=== PATIENT | male | born 1975 | race Caucasian/White ===

== ENCOUNTER 2018-09-09 23:40 | Observation (INO) | payer OTHER ==
[~2018-09-09] VITALS: Ht 177.8 cm; Wt 86.2 kg
[2018-09-10] MEDS ORDERED: AMIT25 PO (00:20)
[2018-09-10] MEDS ORDERED: CLON.2 (00:21)
[2018-09-10] MEDS ORDERED: SERT100 PO (00:21)
[2018-09-10] MEDS ORDERED: Naltrexone HCl50 MG PO (00:21)
[2018-09-10] MEDS ORDERED: LEVE500 PO ×2 (00:22)
[2018-09-10 01:10] LABS: U Amphetamine Screen Not Detected; U Barbituate Screen Not Detected; U Benzodiazapine Screen DETECTED; U Buprenorphine Screen Not Detected; U Cannabinoids Screen DETECTED; U Cocaine Screen Not Detected; U Methadone Screen Not Detected; U Methamphetamine Screen Not Detected; U Opiates Screen Not Detected; U Oxycodone Screen Not Detected; U Phencyclidine Screen Not Detected; U Propoxyphene Screen Not Detected
[2018-09-10 01:30] LABS: BASOPHILS ABSOLUTE AUTO 0.05 K/mm3 (0.00-0.23); BASOPHILS PERCENT AUTO 1 % (0-2); EOSINOPHILS ABSOLUTE AUTO 0.63 K/mm3 (0.00-0.68); EOSINOPHILS PERCENT AUTO 7 % (0-6); Hematocrit 46.6 % (37.0-53.0); Hemoglobin 15.4 g/dL (13.5-17.5); IMMATURE GRAN ABSOLUTE AUTO 0.02 K/mm3 (0.00-0.10); IMMATURE GRAN PERCENT AUTO 0 % (0-1); LYMPHOCYTES ABSOLUTE AUTO 2.56 K/mm3 (0.84-5.20); LYMPHOCYTES PERCENT AUTO 27 % (21-46); MONOCYTES ABSOLUTE AUTO 1.05 K/mm3 (0.16-1.47); MONOCYTES PERCENT AUTO 11 % (4-13); Mean Corpuscular HGB 31.9 pg (26.0-34.0); Mean Corpuscular Volume 97 fL (80-100); Mean Platelet Volume 10.4 fL (9.1-12.4); NEUTROPHILS ABSOLUTE AUTO 5.27 K/mm3 (1.96-9.15); NEUTROPHILS PERCENT AUTO 55 % (41-73); Platelet Count 263 K/mm3 (150-400); RDW Coefficient Variation 13.7 % (11.7-14.2); RDW Standard Deviation 49.7 fL (35.1-46.3); Red Blood Cell Count 4.83 M/mm3 (4.30-5.90); White Blood Cell Count 9.58 K/mm3 (4.00-11.30)
[2018-09-10 01:47] LABS: Alanine Aminotransfer (ALT/SGP 47 U/L (12-78); Alk Phos 70 U/L (50-136); Anion Gap 9 mmol/L (6-16); Aspartate Aminotrans (AST/SGOT 53 U/L (12-37); Bilirubin, Total 0.4 mg/dL (0.1-1.0); Blood Urea Nitrogen 8 mg/dL (8-24); Bun/Creatinine Ratio 9.1 (12.0-20.0); CO2, Blood 27 mmol/L (21-32); Calcium, Blood 8.7 mg/dL (8.5-10.1); Chloride, Blood 104 mmol/L (98-108); Creatinine, Blood 0.88 mg/dL (0.60-1.20); Globulin, Blood 3.9 g/dL (2.2-4.0); Glomerular Filtration Rate >60 (60-); Glucose, Blood 125 mg/dL (70-99); Potassium, Blood 4.2 mmol/L (3.5-5.5); Salicylate 3.4 mg/dL (2.8-20.0); Sodium, Blood 140 mmol/L (136-145); Total Protein, Blood 7.9 g/dL (6.4-8.2)
[2018-09-10 01:51] LABS: Acetaminophen, Random <2.0 ug/mL (10.0-30.0)
== END 2018-09-10 14:27 | disposition home or self-care (01) ==
LOC: ER 23:40 → EOR 23:41
PROVIDERS: Physician Assistant; ADMIT Emergency Medicine
DX: F32.9 Major depressive disorder, single episode, unspecified (principal); I10 Essential (primary) hypertension; G40.909 Epilepsy, unspecified, not intractable, without status epilepticus; Z79.899 Other long term (current) drug therapy
CPT/HCPCS: 80053; 85025; 99285; G0378; G0480; Q3014

== ENCOUNTER 2018-10-16 19:07 | Emergency (ER) | payer OTHER ==
[~2018-10-16] VITALS: Ht 177.8 cm; Wt 83.9 kg
[~2018-10-16 19:07] MED LIST: AMIT25 PO; CLON.2; LEVE500 PO; Naltrexone HCl50 MG PO; SERT100 PO
[2018-10-16] MEDS ORDERED: CEPH500 PO (19:36)
[2018-10-16] MEDS ORDERED: KETO10 PO (19:36)
[2018-10-16] MEDS ORDERED: Bactrim Ds Tab1 EACH PO (19:36)
== END 2018-10-16 19:45 | disposition home or self-care (01) ==
LOC: ER 19:07
DX: L03.116 Cellulitis of left lower limb (principal); L03.115 Cellulitis of right lower limb; G40.909 Epilepsy, unspecified, not intractable, without status epilepticus; I10 Essential (primary) hypertension; F32.9 Major depressive disorder, single episode, unspecified; Z79.899 Other long term (current) drug therapy
CPT/HCPCS: 99283

== ENCOUNTER 2018-12-16 15:05 | Emergency (ER) | payer OTHER ==
[~2018-12-16 15:05] MED LIST changes: +Bactrim Ds Tab1 EACH PO; +CEPH500 PO; +KETO10 PO
== END 2018-12-16 15:50 | disposition left against medical advice (07) ==
LOC: ER 15:05
DX: Z53.21 Procedure and treatment not carried out due to patient leaving prior to being seen by health care provider (principal); M54.9 Dorsalgia, unspecified

== ENCOUNTER 2018-12-19 07:55 | Emergency (ER) | payer OTHER ==
[~2018-12-19] VITALS: Ht 177.8 cm; Wt 81.7 kg
[2018-12-19 09:17] LABS: BASOPHILS ABSOLUTE AUTO 0.06 K/mm3 (0.00-0.23); BASOPHILS PERCENT AUTO 1 % (0-2); EOSINOPHILS ABSOLUTE AUTO 0.15 K/mm3 (0.00-0.68); EOSINOPHILS PERCENT AUTO 1 % (0-6); Hematocrit 47.9 % (37.0-53.0); Hemoglobin 16.4 g/dL (13.5-17.5); IMMATURE GRAN ABSOLUTE AUTO 0.05 K/mm3 (0.00-0.10); IMMATURE GRAN PERCENT AUTO 0 % (0-1); LYMPHOCYTES ABSOLUTE AUTO 2.39 K/mm3 (0.84-5.20); LYMPHOCYTES PERCENT AUTO 19 % (21-46); MONOCYTES ABSOLUTE AUTO 0.82 K/mm3 (0.16-1.47); MONOCYTES PERCENT AUTO 6 % (4-13); Mean Corpuscular HGB 31.2 pg (26.0-34.0); Mean Corpuscular HGB Conc 34.2 g/dL (31.5-36.5); Mean Corpuscular Volume 91 fL (80-100); Mean Platelet Volume 10.7 fL (9.1-12.4); NEUTROPHILS ABSOLUTE AUTO 9.41 K/mm3 (1.96-9.15); NEUTROPHILS PERCENT AUTO 73 % (41-73); Platelet Count 268 K/mm3 (150-400); RDW Coefficient Variation 12.6 % (11.7-14.2); Red Blood Cell Count 5.26 M/mm3 (4.30-5.90); White Blood Cell Count 12.88 K/mm3 (4.00-11.30)
[2018-12-19 09:25] LABS: Alanine Aminotransfer (ALT/SGP 27 U/L (12-78); Albumin, Blood 4.2 g/dL (3.4-5.0); Alk Phos 67 U/L (50-136); Anion Gap 9 mmol/L (6-16); Aspartate Aminotrans (AST/SGOT 30 U/L (12-37); Bilirubin, Total 0.3 mg/dL (0.1-1.0); Blood Urea Nitrogen 7 mg/dL (8-24); Bun/Creatinine Ratio 9.9 (12.0-20.0); CO2, Blood 24 mmol/L (21-32); Calcium, Blood 9.3 mg/dL (8.5-10.1); Chloride, Blood 106 mmol/L (98-108); Creatinine, Blood 0.71 mg/dL (0.60-1.20); Globulin, Blood 4.1 g/dL (2.2-4.0); Glomerular Filtration Rate >60 (60-); Glucose, Blood 109 mg/dL (70-99); Potassium, Blood 3.8 mmol/L (3.5-5.5); Sodium, Blood 139 mmol/L (136-145); Total Protein, Blood 8.3 g/dL (6.4-8.2)
== END 2018-12-19 10:51 | disposition home or self-care (01) ==
LOC: ER 07:55
PROVIDERS: Emergency Medicine
DX: G40.909 Epilepsy, unspecified, not intractable, without status epilepticus (principal); F32.9 Major depressive disorder, single episode, unspecified; I10 Essential (primary) hypertension; Z79.899 Other long term (current) drug therapy
CPT/HCPCS: 36415; 80053; 85025; 96365; 99284-25; J1953

== ENCOUNTER → 2019-06-03 | Outpatient (CLI) | payer MEDICARE, OTHER | LOC: LAB EV 13:30 → LAB SHORT 13:30 | DX: B35.4 Tinea corporis (principal) | CPT/HCPCS: 87220 ==

== ENCOUNTER 2019-08-17 10:25 | Observation (INO) | payer MEDICARE, OTHER ==
[~2019-08-17] VITALS: Ht 175.3 cm; Wt 87.5 kg
[~2019-08-17 10:25] MED LIST changes: -AMIT25 PO; -B-1100 M1 PO; -Daily Multiple1 EACH PO; -LEVE500 PO; -Naltrexone HCl50 MG PO; -OMEP20ER PO; -Tizanidine HCl2 MG PO; -VENL75ER PO; -Vistaril50 MG PO
[2019-08-17] MEDS ORDERED: AMIT25 PO (12:36)
[2019-08-17] MEDS ORDERED: LEVE500 PO ×2 (12:36)
[2019-08-17] MEDS ORDERED: Vistaril50 MG PO (12:37)
[2019-08-17] MEDS ORDERED: Tizanidine HCl2 MG PO (12:38)
[2019-08-17] MEDS ORDERED: VENL75ER PO (12:39)
[2019-08-17] MEDS ORDERED: Naltrexone HCl50 MG PO (12:40)
[2019-08-17 13:49] LABS: Hematocrit 41.8 % (37.0-53.0); Hemoglobin 13.8 g/dL (13.5-17.5)
--- NOTE | 2019-08-17 18:27 | NUR ---
SHIFT NOTE PT ARRIVED FROM ER, NO ACTIVE VOMITTING OR NAUSEA UPON ARRIVAL FROM ER. PT STS THAT HE BEGAN WITH COFFEE GROUND EMESIS AND DARK BLACK STOOLS. PT REPORTS MILD ABD DISCOMFORT, SOFT TENDER ABD. PT HAS BEEN SEEN BY DR SWANN, WAITING FOR ORDERS FOR DIET CHANGE, PT WILL THEN BE NPO TOMORROW AM FOR SCOPE. PT OTHERWISE IS RESTING WELL IN BED
[2019-08-17 19:18] LABS: Hematocrit 39.8 % (37.0-53.0); Hemoglobin 13.1 g/dL (13.5-17.5)
[2019-08-18 01:17] LABS: Hematocrit 39.5 % (37.0-53.0); Hemoglobin 12.9 g/dL (13.5-17.5)
--- NOTE | 2019-08-18 06:31 | NUR ---
SHIFT SUMMARY PT SLEEPING IN ROOM COMFORTABLY AT THIS TIME. NO ACUTE CHANGES IN STATUS T/O NIGHT. PT SLEPT WELL. DENIED ANY CP OR SOB. RESP EVEN UNLABORED ON RA W/ SATS >92%. PT CIWA SCORE REMAINED LOW, NO TREMORS NOTED. PT DENIED ANY HERNÁNDEZ OR SWEATING. PROTONIX GTT INFUSING IN PIV. DENIED OTHER NEEDS. CALL LIGHT IN REACH.
[2019-08-18 06:45] LABS: BASOPHILS ABSOLUTE AUTO 0.04 K/mm3 (0.00-0.23); BASOPHILS PERCENT AUTO 0 % (0-2); EOSINOPHILS ABSOLUTE AUTO 0.21 K/mm3 (0.00-0.68); EOSINOPHILS PERCENT AUTO 2 % (0-6); Hematocrit 39.7 % (37.0-53.0); Hemoglobin 13.1 g/dL (13.5-17.5); IMMATURE GRAN ABSOLUTE AUTO 0.05 K/mm3 (0.00-0.10); IMMATURE GRAN PERCENT AUTO 1 % (0-1); LYMPHOCYTES ABSOLUTE AUTO 1.76 K/mm3 (0.84-5.20); LYMPHOCYTES PERCENT AUTO 16 % (21-46); MONOCYTES ABSOLUTE AUTO 1.13 K/mm3 (0.16-1.47); MONOCYTES PERCENT AUTO 11 % (4-13); Mean Corpuscular HGB 31.4 pg (26.0-34.0); Mean Corpuscular Volume 95 fL (80-100); Mean Platelet Volume 10.1 fL (9.1-12.4); NEUTROPHILS ABSOLUTE AUTO 7.53 K/mm3 (1.96-9.15); NEUTROPHILS PERCENT AUTO 70 % (41-73); Platelet Count 321 K/mm3 (150-400); RDW Coefficient Variation 13.7 % (11.7-14.2); RDW Standard Deviation 47.8 fL (35.1-46.3); Red Blood Cell Count 4.17 M/mm3 (4.30-5.90); White Blood Cell Count 10.72 K/mm3 (4.00-11.30)
[2019-08-18 07:14] LABS: Alanine Aminotransfer (ALT/SGP 24 U/L (12-78); Albumin, Blood 2.9 g/dL (3.4-5.0); Albumin/Globulin Ratio 0.7 (0.8-1.8); Alk Phos 79 U/L (50-136); Anion Gap 6 mmol/L (6-16); Aspartate Aminotrans (AST/SGOT 23 U/L (12-37); Bilirubin, Total 0.7 mg/dL (0.1-1.0); Blood Urea Nitrogen 10 mg/dL (8-24); Bun/Creatinine Ratio 11.8 (12.0-20.0); CO2, Blood 28 mmol/L (21-32); Calcium, Blood 8.2 mg/dL (8.5-10.1); Chloride, Blood 105 mmol/L (98-108); Creatinine, Blood 0.85 mg/dL (0.60-1.20); Globulin, Blood 3.9 g/dL (2.2-4.0); Glomerular Filtration Rate >60 (60-); Glucose, Blood 99 mg/dL (70-99); Magnesium, Blood 2.6 mg/dL (1.6-2.4); Potassium, Blood 3.3 mmol/L (3.5-5.5); Sodium, Blood 139 mmol/L (136-145); Total Protein, Blood 6.8 g/dL (6.4-8.2)
--- NOTE | 2019-08-18 12:58 | NUR ---
08/18/19 1258 Santino Guerra History, Chart, Medications and Allergies reviewed before start of procedure.MONITOR INTACT WITH CONTINUOUS PULSE OXIMETRY AND INTERMITTENT BP.3-LEAD EKG REVIEWED WITH PHYSICIAN PRIOR TO START OF PROCEDURE.O2 VIA N/C INTACT THROUGHOUT SEDATION/PROCEDURE. Patient confirms NPO status and agrees with scheduled surgery.PATIENT DETERMINED TO BE ASA APPROPRIATE FOR PROPOFOL SEDATION PRIOR TO START OF PROCEDURE BY DR. SWANN.
[2019-08-18] MEDS ORDERED: OMEP20ER PO (14:51)
[2019-08-18] MEDS ORDERED: Daily Multiple1 EACH PO (14:51)
[2019-08-18] MEDS ORDERED: B-1100 M1 PO (14:53)
--- NOTE | 2019-08-18 15:57 | NUR ---
PCU DISCHARGE SUMMARY PATIENT REMAINS ALERT AND ORIENTED X4 T/O SHIFT. PATIENT INDEPENDENT IN THE ROOM. PATIENT DENIED ANY PAIN. PATIENT LEFT UNIT FOR UPPER SCOPE WITH MD SWANN. PATIENT UPDATE BY MD SWANN ON GASTRIC EROSION AND ULCERS - PATINET EDUCATED ON SMOKING CESSATION AND ETOH CESSATION. PATIENT ALERT AND ORIENTED AFTER UPPER SCOPE AND CONTINUES TO DENY PAIN. NO S/SX OF BLEEDING NOTED (VOMIT NOR STOOL). PATIENT TO LEAVE UNIT FOR HOME WITH FRIEND. PATIENT EDUCATED NOT TO DRIVE OR HE COULD BE SITED WITH DUII. NO ACUTE DISTRESS NOTED.
== END 2019-08-18 16:33 | disposition home or self-care (01) ==
LOC: ER 10:25 → PCU 12:38 → ERHOLD 12:38 → ER 12:38 → PCU 15:04 → ERHOLD 15:04 → PCU 08-18 10:25
PROVIDERS: Internal Medicine Gastroenterology; ADMIT Internal Medicine
PROC: 0DB98ZX Excision of Duodenum, Via Natural or Artificial Opening Endoscopic, Diagnostic (ICD-10-PCS; principal; 2019-08-18 12:45)
PROC: 0DB78ZX Excision of Stomach, Pylorus, Via Natural or Artificial Opening Endoscopic, Diagnostic (ICD-10-PCS; 2019-08-18 12:45)
DX: K22.11 Ulcer of esophagus with bleeding (principal); K29.51 Unspecified chronic gastritis with bleeding; K29.80 Duodenitis without bleeding; K44.9 Diaphragmatic hernia without obstruction or gangrene; F10.10 Alcohol abuse, uncomplicated; E87.6 Hypokalemia; D72.829 Elevated white blood cell count, unspecified; G40.209 Localization-related (focal) (partial) symptomatic epilepsy and epileptic syndromes with complex partial seizures, not intractable, without status epilepticus; F41.8 Other specified anxiety disorders; D64.9 Anemia, unspecified; Z79.899 Other long term (current) drug therapy
CPT/HCPCS: 36415; 80053; 82607; 82728; 82746; 83540; 83550; 83735; 85014; 85018; 85025; 86850; 86900; 86901; 96365; 96366; 96375; 99285-25; A9270-GY; C9113; J2250; J2405; J2704; J2765; J3411; J3420; J3475; J3480; J7042; J7120

== ENCOUNTER → 2019-08-17 | Outpatient (CLI) | payer MEDICARE, OTHER ==
[~2019-08-17] MED LIST changes: +B-1100 M1 PO; +Daily Multiple1 EACH PO; +OMEP20ER PO; +Tizanidine HCl2 MG PO; +VENL75ER PO; +Vistaril50 MG PO
[2019-08-17 10:17] LABS: BASOPHILS ABSOLUTE AUTO 0.07 K/mm3 (0.00-0.23); BASOPHILS PERCENT AUTO 0 % (0-2); EOSINOPHILS ABSOLUTE AUTO 0.06 K/mm3 (0.00-0.68); EOSINOPHILS PERCENT AUTO 0 % (0-6); Hematocrit 45.5 % (37.0-53.0); IMMATURE GRAN ABSOLUTE AUTO 0.09 K/mm3 (0.00-0.10); IMMATURE GRAN PERCENT AUTO 0 % (0-1); LYMPHOCYTES ABSOLUTE AUTO 1.64 K/mm3 (0.84-5.20); LYMPHOCYTES PERCENT AUTO 8 % (21-46); MONOCYTES ABSOLUTE AUTO 1.22 K/mm3 (0.16-1.47); MONOCYTES PERCENT AUTO 6 % (4-13); Mean Corpuscular HGB 31.3 pg (26.0-34.0); Mean Corpuscular Volume 95 fL (80-100); Mean Platelet Volume 10.1 fL (9.1-12.4); NEUTROPHILS ABSOLUTE AUTO 17.07 K/mm3 (1.96-9.15); NEUTROPHILS PERCENT AUTO 85 % (41-73); Platelet Count 430 K/mm3 (150-400); RDW Coefficient Variation 13.7 % (11.7-14.2); RDW Standard Deviation 48.2 fL (35.1-46.3); Red Blood Cell Count 4.79 M/mm3 (4.30-5.90); White Blood Cell Count 20.15 K/mm3 (4.00-11.30)
[2019-08-17 10:26] LABS: Alanine Aminotransfer (ALT/SGP 34 U/L (12-78); Albumin, Blood 3.8 g/dL (3.4-5.0); Albumin/Globulin Ratio 0.8 (0.8-1.8); Alk Phos 105 U/L (40-126); Anion Gap 10 mmol/L (6-16); Aspartate Aminotrans (AST/SGOT 31 U/L (12-37); Bilirubin, Total 0.3 mg/dL (0.1-1.0); Blood Urea Nitrogen 15 mg/dL (8-24); Bun/Creatinine Ratio 13.2 (12.0-20.0); CO2, Blood 32 mmol/L (21-32); Calcium, Blood 9.7 mg/dL (8.5-10.1); Chloride, Blood 102 mmol/L (98-108); Creatinine, Blood 1.14 mg/dL (0.60-1.20); Globulin, Blood 4.9 g/dL (2.2-4.0); Glomerular Filtration Rate >60 (60-); Glucose, Blood 124 mg/dL (70-99); Potassium, Blood 3.5 mmol/L (3.5-5.5); Sodium, Blood 144 mmol/L (136-145); Total Protein, Blood 8.7 g/dL (6.4-8.2)
== END | disposition home or self-care (01) ==
LOC: LAB EV 10:11 → LAB SHORT 10:11
PROVIDERS: Physician Assistant
DX: K92.0 Hematemesis (principal)
CPT/HCPCS: 80053; 85025

== ENCOUNTER 2020-01-20 13:07 | Emergency (ER) | payer MEDICARE, OTHER ==
[~2020-01-20] VITALS: Ht 177.8 cm; Wt 86.2 kg
[~2020-01-20 13:07] MED LIST changes: +AMIT25 PO; +B-1100 M1 PO; +Daily Multiple1 EACH PO; +LEVE500 PO; +Naltrexone HCl50 MG PO; +OMEP20ER PO; +Tizanidine HCl2 MG PO; +VENL75ER PO; +Vistaril50 MG PO
[2020-01-20 13:34] LABS: BASOPHILS ABSOLUTE AUTO 0.06 K/mm3 (0.00-0.23); BASOPHILS PERCENT AUTO 0 % (0-2); EOSINOPHILS ABSOLUTE AUTO 0.19 K/mm3 (0.00-0.68); EOSINOPHILS PERCENT AUTO 1 % (0-6); Hematocrit 45.1 % (37.0-53.0); IMMATURE GRAN ABSOLUTE AUTO 0.16 K/mm3 (0.00-0.10); IMMATURE GRAN PERCENT AUTO 1 % (0-1); LYMPHOCYTES ABSOLUTE AUTO 2.48 K/mm3 (0.84-5.20); LYMPHOCYTES PERCENT AUTO 16 % (21-46); MONOCYTES ABSOLUTE AUTO 1.26 K/mm3 (0.16-1.47); MONOCYTES PERCENT AUTO 8 % (4-13); Mean Corpuscular HGB 30.3 pg (26.0-34.0); Mean Corpuscular HGB Conc 33.3 g/dL (31.5-36.5); Mean Corpuscular Volume 91 fL (80-100); NEUTROPHILS ABSOLUTE AUTO 11.43 K/mm3 (1.96-9.15); NEUTROPHILS PERCENT AUTO 73 % (41-73); Platelet Count 275 K/mm3 (150-400); RDW Coefficient Variation 14.1 % (11.7-14.2); RDW Standard Deviation 47.4 fL (35.1-46.3); Red Blood Cell Count 4.95 M/mm3 (4.30-5.90); White Blood Cell Count 15.58 K/mm3 (4.00-11.30)
[2020-01-20 13:49] LABS: Alanine Aminotransfer (ALT/SGP 34 U/L (12-78); Alk Phos 69 U/L (50-136); Anion Gap 15 mmol/L (6-16); Aspartate Aminotrans (AST/SGOT 28 U/L (12-37); Bilirubin, Total 0.4 mg/dL (0.1-1.0); Blood Urea Nitrogen 6 mg/dL (8-24); Bun/Creatinine Ratio 6.9 (12.0-20.0); CO2, Blood 18 mmol/L (21-32); Calcium, Blood 9.6 mg/dL (8.5-10.1); Chloride, Blood 106 mmol/L (98-108); Creatinine, Blood 0.87 mg/dL (0.60-1.20); Globulin, Blood 4.2 g/dL (2.2-4.0); Glomerular Filtration Rate >60 (60-); Glucose, Blood 117 mg/dL (70-99); Potassium, Blood 3.4 mmol/L (3.5-5.5); Sodium, Blood 139 mmol/L (136-145); Total Protein, Blood 8.2 g/dL (6.4-8.2); Troponin I <0.015 ng/mL (0.000-0.040)
[2020-01-20] MEDS ORDERED: LISI5 (14:31)
[2020-01-20] MEDS ORDERED: VENL150ER PO (15:49)
[2020-01-20] MEDS ORDERED: DISU250 PO (15:49)
[2020-01-20 16:01] LABS: Source, Urine Clean Catch
[2020-01-20 16:04] LABS: Bilirubin, Urine Neg (Neg); Blood, Urine Neg (Neg); Glucose Qualitative, Urine Neg (Neg); Ketones, Urine 1+ (Neg); Leukocyte Esterase, Urine Neg (Neg); Nitrite, Urine Neg (Neg); Protein, Urine 2+ (Neg); Specific Gravity, Urine 1.015 (1.003-1.022); Urobilinogen, Urine NORM (Normal)
[2020-01-20 16:18] LABS: Appearance, Urine Clear (Clear); Color, Urine Yellow (P-Yellow); U Amphetamine Screen DETECTED; U Cannabinoids Screen DETECTED; U Methamphetamine Screen DETECTED
[2020-01-20 16:19] LABS: U Barbituate Screen Not Detected; U Benzodiazapine Screen Not Detected; U Buprenorphine Screen Not Detected; U Cocaine Screen Not Detected; U Methadone Screen Not Detected; U Opiates Screen Not Detected; U Oxycodone Screen Not Detected; U Phencyclidine Screen Not Detected; U Propoxyphene Screen Not Detected
[2020-01-20 16:20] LABS: Bacteria Rare /hpf; Red Blood Cells, Urine 0-2 /hpf (0-2); Squamous Epithelial Cells Not Seen /hpf (Few); White Blood Cells, Urine 0-2 /hpf (0-5)
== END 2020-01-20 17:22 | disposition left against medical advice (07) ==
LOC: ER 13:07
PROVIDERS: Emergency Medicine
DX: S02.2XXA Fracture of nasal bones, initial encounter for closed fracture (principal); Z88.8 Allergy status to other drugs, medicaments and biological substances; Z23 Encounter for immunization; Z79.899 Other long term (current) drug therapy; V28.4XXA Motorcycle driver injured in noncollision transport accident in traffic accident, initial encounter; Y92.410 Unspecified street and highway as the place of occurrence of the external cause
CPT/HCPCS: 70450; 70486; 71045; 72125; 72170; 74177; 80053; 81001; 83690; 84484; 85025; 86850; 86900; 86901; 90714; 93005; 93010; G0480; J2405; J3010; J7030; Q9967

== ENCOUNTER 2020-01-26 13:22 | Emergency (ER) | payer MEDICARE, OTHER ==
[~2020-01-26] VITALS: Ht 175.3 cm; Wt 95.2 kg
[~2020-01-26 13:22] MED LIST changes: +DISU250 PO; +LISI5; +TIZA4 PO; -Tizanidine HCl2 MG PO; +VENL150ER PO
[2020-01-26] MEDS ORDERED: OMEP20ER PO (14:49)
[2020-01-26] MEDS ORDERED: LEVE500 PO (14:49)
[2020-01-26] MEDS ORDERED: PROP80ER PO (14:50)
[2020-01-26] MEDS ORDERED: VENL37.5 PO (14:51)
== END 2020-01-26 16:26 | disposition home or self-care (01) ==
LOC: ER 13:22
DX: S06.0X9A Concussion with loss of consciousness of unspecified duration, initial encounter (principal); R41.3 Other amnesia; F32.9 Major depressive disorder, single episode, unspecified; I10 Essential (primary) hypertension; Z79.899 Other long term (current) drug therapy; V29.9XXA Motorcycle rider (driver) (passenger) injured in unspecified traffic accident, initial encounter; Y92.410 Unspecified street and highway as the place of occurrence of the external cause
CPT/HCPCS: 70450; 99285-25

== ENCOUNTER 2023-03-21 13:44 | Emergency (ER) | payer MEDICARE, OTHER ==
[~2023-03-21] VITALS: Ht 177.8 cm; Wt 95.2 kg
[~2023-03-21 13:44] MED LIST changes: +PROP80ER PO; +VENL37.5 PO
[2023-03-21] MEDS ORDERED: NORT25 PO (13:59)
[2023-03-21] MEDS ORDERED: HYDPAM50 (14:00)
[2023-03-21 14:10] LABS: BASOPHILS ABSOLUTE AUTO 0.09 K/mm3 (0.00-0.23); BASOPHILS PERCENT AUTO 1 % (0-2); EOSINOPHILS ABSOLUTE AUTO 0.76 K/mm3 (0.00-0.68); EOSINOPHILS PERCENT AUTO 7 % (0-6); Hematocrit 44.7 % (37.0-53.0); Hemoglobin 15.2 g/dL (13.5-17.5); IMMATURE GRAN ABSOLUTE AUTO 0.05 K/mm3 (0.00-0.10); IMMATURE GRAN PERCENT AUTO 1 % (0-1); LYMPHOCYTES ABSOLUTE AUTO 2.92 K/mm3 (0.84-5.20); LYMPHOCYTES PERCENT AUTO 28 % (21-46); MONOCYTES ABSOLUTE AUTO 0.89 K/mm3 (0.16-1.47); MONOCYTES PERCENT AUTO 9 % (4-13); Mean Corpuscular HGB 31.8 pg (26.0-34.0); Mean Corpuscular Volume 94 fL (80-100); Mean Platelet Volume 10.8 fL (9.1-12.4); NEUTROPHILS ABSOLUTE AUTO 5.59 K/mm3 (1.96-9.15); NEUTROPHILS PERCENT AUTO 54 % (41-73); Platelet Count 298 K/mm3 (150-400); RDW Coefficient Variation 13.4 % (11.7-14.2); RDW Standard Deviation 46.5 fL (35.1-46.3); Red Blood Cell Count 4.78 M/mm3 (4.30-5.90)
[2023-03-21 14:39] LABS: Albumin, Blood 3.9 g/dL (3.4-5.0); Albumin/Globulin Ratio 1.1 (0.8-1.8); Bilirubin, Total 0.3 mg/dL (0.1-1.0); Bun/Creatinine Ratio 16.3 (12.0-20.0); Calcium, Blood 9.3 mg/dL (8.5-10.1); Creatinine, Blood 0.86 mg/dL (0.60-1.20); Globulin, Blood 3.7 g/dL (2.2-4.0); Potassium, Blood 4.2 mmol/L (3.5-5.5); Total Protein, Blood 7.6 g/dL (6.4-8.2)
[2023-03-21 16:30] VITALS: BP 135/70
== END 2023-03-21 17:32 | disposition home or self-care (01) ==
LOC: ER 13:44
PROVIDERS: Emergency Medicine
DX: R56.9 Unspecified convulsions (principal); R55 Syncope and collapse; I10 Essential (primary) hypertension; Z79.899 Other long term (current) drug therapy
CPT/HCPCS: 80053; 85025; 93005; 93010; 96360; 99285-25; A9270; J7030